=== PATIENT | male | born 1955 | race Two or more races ===

== ENCOUNTER 2021-04-06 08:28 | Inpatient (IN) | payer MEDICAID, OTHER ==
[~2021-04-06] VITALS: Ht 157.5 cm; Wt 78.0 kg
[2021-04-06] MEDS ORDERED: NEO/POLYMYX B SULF/DEXAMETH OPHTH OINT 3.5GM ONE (08:36)
[2021-04-06] MEDS ORDERED: CIPROFLOXACIN 0.3% OPHTH SOLN 2.5ML ONE (08:36)
[2021-04-06] MEDS ORDERED: BUPIVACAINE HCL/PF 0.75% (7.5MG/ML) 10ML ONE (08:36)
[2021-04-06] MEDS ORDERED: ACETYLCHOLINE CHLORIDE INTRAOCULAR SOLUTION 1:100 ELECTROLYTE DILUENT IO ONE (08:36)
[2021-04-06] MEDS ORDERED: TROPICAMIDE 1% OPHTH DROPS 15ML ONE (08:36)
[2021-04-06] MEDS ORDERED: LIDOCAINE HCL/PF 2% 20 MG/ML 10ML VIAL ONE (08:36)
[2021-04-06] MEDS ORDERED: PREDNISOLONE ACETATE 1% OPHTH DROPS 5ML ONE (08:36)
[2021-04-06] MEDS ORDERED: BALANCED SALT IRRIG SOLN 15ML ONE (08:36)
[2021-04-06] MEDS ORDERED: LIDOCAINE HCL 2%/EPINEPHRINE 1:100,000 20 ML VIAL INFIL ONE (08:36)
[2021-04-06] MEDS ORDERED: SODIUM CHLORIDE 0.9% 1,000 ML IV ONE (08:45)
[2021-04-06 08:57] LABS: BASOPHILS % 0.5 % (0.0-2.0); EOSINOPHILS % 2.5 % (0.0-5.0); HEMATOCRIT. 45.2 % (42.0-52.0); HEMOGLOBIN. 16.1 g/dL (14.0-18.0); LYMPHOCYTES % 46.2 % (20.0-50.0); MEAN CORPUSCULAR HEMOGLOBIN 30.5 pg (28.0-32.0); MEAN PLATELET VOLUME 7.8 fl (7.4-10.4); NEUTROPHILS % 43.8 % (40.0-76.0); PLATELET 225 x1000/uL (130-400); RED BLOOD CELL COUNT 5.26 mill/uL (4.7-6.1); RED CELL DISTRIBUTION WIDTH 13.3 % (11.6-14.6)
[2021-04-06 09:03] LABS: CHLORIDE 104 mEq/L (98-107)
[2021-04-06 09:06] LABS: INR 1.1; PARTIAL THROMBOPLASTIN TIME 25.2 sec (23.4-31.0)
[2021-04-06] MEDS ORDERED: ACETAZOLAMIDE SODIUM 500MG/VIAL IV ONE (10:30)
[2021-04-06 10:40] VITALS: BP 139/88
[2021-04-06] MEDS ORDERED: CLONIDINE 0.1MG TABLET PO PRN (12:30)
[2021-04-06] MEDS ORDERED: ACETAMINOPHEN 325MG TABLET PO PRN ×2 (12:30)
[2021-04-06] MEDS ORDERED: DOCUSATE SODIUM 100MG CAPSULE PO PRN (12:30)
[2021-04-06] MEDS ORDERED: LORAZEPAM 0.5MG TABLET PO PRN (12:30)
[2021-04-06] MEDS ORDERED: HYDROCODONE/ACETAMINOPHEN 5/325MG TABLET PO PRN (12:30)
[2021-04-06] MEDS ORDERED: IPRATROPIUM/ALBUTEROL 0.5-3(2.5)MG/3ML NEB HHN PRN (12:30)
[2021-04-06] MEDS ORDERED: ONDANSETRON HCL 4MG/2ML INJ IV PRN (12:30)
[2021-04-06] MEDS ORDERED: MITOMYCIN 0.2 MG KIT OP NR (12:45)
[2021-04-06] MEDS ORDERED: MIDAZOLAM HCL 2 MG/2 ML VIAL ONE (12:46)
[2021-04-06] MEDS ORDERED: FENTANYL CITRATE/PF 50MCG/ML 2ML VIAL ONE (12:46)
[2021-04-06] MEDS ORDERED: TRIAMCINOLONE ACETONIDE 40MG/ML 1ML VIAL ONE (12:56)
[2021-04-06] MEDS ORDERED: KETOROLAC 30MG/ML VIAL ONE (13:37)
== END 2021-04-07 02:00 | disposition home or self-care (01) | DRG 73 ==
LOC: ER 08:28 → EDBEDREQ 10:34 → OR 12:00 → ORIP 13:00 → CANBEDREQ 13:55 → ORIP 15:20 → UNDOADMIN 15:20 → MICUSO 15:20 → OR 15:30 → UNDODISIN 17:00
PROVIDERS: ADMIT Ophthalmology; ATTEND Ophthalmology
PROC: 08123Z4 Bypass Right Anterior Chamber to Sclera, Percutaneous Approach (ICD-10-PCS; principal; 2021-04-06)
DX: H40.89 Other specified glaucoma (principal); E11.36 Type 2 diabetes mellitus with diabetic cataract; Z20.822 Contact with and (suspected) exposure to COVID-19; E11.65 Type 2 diabetes mellitus with hyperglycemia; Z88.0 Allergy status to penicillin
CPT/HCPCS: 36415; 80048; 80061; 83036; 84443; 85025; 87426; 93005; 99285; J1120; J1885; J2250; J3010; J3301; J3490; J7030